=== PATIENT | female | born 1950 | race Caucasian/White ===

== ENCOUNTER → 2023-04-16 10:34 | Outpatient (CLI) | payer MEDICARE, BC, SELFPAY ==
--- NOTE | 2023-04-16 | DI.MRI.S_ITS ---
PROCEDURE: MR LUMBAR SPINE WO CON INDICATIONS: Low back pain, unspecified TECHNIQUE: Noncontrast sagittal T1 spin echo and T2 fast echo, sagittal STIR, and T2 fast spin echo through the lumbar spine. In cases with scoliosis, additional coronal T2 fast spin echo may be performed. COMPARISON: None. FINDINGS: Image quality: Excellent. Alignment and Curvature: There is normal bony alignment. Bone Marrow: Marrow is of normal overall signal. No acute vertebral body compression fractures. Spinal Cord: Conus medullaris terminates at the L1 level. Visualized cord demonstrates normal signal and size. Paraspinous Soft Tissues: No paravertebral masses. There are bilateral T2 hyperintense exophytic cortical lesions suggesting simple renal cysts which are incompletely characterized. T12-L1: Normal appearance. L1-L2: Normal appearance. L2-L3: Normal appearance. L3-L4: Disc height and signal is preserved. Broad-based disc bulge. No canal stenosis. Moderate facet ligamentum flavum hypertrophy. No foraminal stenosis. L4-L5: Disc height and signal is preserved. Broad-based disc bulge. Severe facet and ligamentum flavum hypertrophy. No canal stenosis. Mild bilateral left neural foraminal stenosis. No right foraminal narrowing. L5-S1: Severe disc desiccation and height loss. Mild facet sclerosis. No canal stenosis. Mild bilateral neural foraminal narrowing. IMPRESSION: 1. No significant foraminal stenosis or canal stenosis of the lumbar spine. Dictated by: Becki Natarajan M.D. on 04/16/2023 at 12:10 Approved by: Becki Natarajan M.D. on 04/16/2023 at 15:07
== END ==
LOC: MRI 10:39
PROVIDERS: Referring Provider Orthopaedic Surgery; Visit Provider Orthopaedic Surgery
DX: M54.50 Low back pain, unspecified (principal)
CPT/HCPCS: 72148